=== PATIENT | female | born 1995 | race American Indian/Alaskan Native ===

== ENCOUNTER 2020-08-29 19:38 | Emergency (ER) | payer SELFPAY ==
[2020-08-29 19:55] VITALS: BP 118/82
--- NOTE | 2020-08-29 21:40 | Event Note ---
ED Screening Note Date of service: 08/29/20 Time: 21:37 ED Screening Note: 25-year-old -[place] female presents to the emergency room for intermittent abdominal pressure that radiates to her chest and back has been going on for several months. Patient states on Sunday the the symptoms have worsened. She denies any nausea vomiting diarrhea dysuria vaginal bleeding vaginal discharge. She does admit to some vaginal spotting. Last menstrual period was 07/23/2020. This initial assessment/diagnostic orders/clinical plan/treatment(s) is/are subject to change based on patients health status, clinical progression and re- assessment by fellow clinical providers in the ED. Further treatment and workup at subsequent clinical providers discretion. Patient/guardian urged not to elope from the ED as their condition may be serious if not clinically assessed and managed. Initial orders include:
[2020-08-29 22:26] LABS: Bilirubin,Urine NEG (Negative); Blood,Urine NEG (Negative); Color,Urine Yellow (Yellow); Protein,Urine <15 mg/dL mg/dL (Negative)
[2020-08-29 22:36] LABS: Hemoglobin 13.3 gm/dl (10.1-14.3); Mean Corpuscular HGB Conc 33 % (30-34); Mean Corpuscular Volume 91 fl (79-97); Platelet Count 245 K/mm3 (140-440); Red Blood Count 4.52 M/mm3 (3.65-5.03); Red Cell Distribution Width 13.6 % (13.2-15.2)
[2020-08-29 22:49] LABS: Basophils # (Auto) 0.1 K/mm3 (0.0-0.1); Eosinophils # (Auto) 0.1 K/mm3 (0.0-0.4); Eosinophils % (Auto) 0.3 % (0.0-4.3); Monocytes % (Auto) 4.2 % (0.0-7.3)
[2020-08-29 22:57] LABS: Alanine Aminotransferase 11 units/L (7-56); Albumin 4.5 g/dL (3.9-5); BUN/Creatinine Ratio 14; Blood Urea Nitrogen 11 mg/dL (7-17); Calcium 8.9 mg/dL (8.4-10.2); Hemolysis Index 4
[2020-08-30 04:31] LABS: Anisocytosis 1+; Total Cells Counted 200
[2020-08-30 04:32] LABS: Platelet Estimate Consistent w Auto
== END 2020-08-29 22:00 | disposition left against medical advice (07) ==
LOC: ED 19:38
DX: R07.9 Chest pain, unspecified (principal); Z53.21 Procedure and treatment not carried out due to patient leaving prior to being seen by health care provider
CPT/HCPCS: 36415; 80053; 81001; 84702; 85007; 85025; 87086

== ENCOUNTER 2021-11-23 22:42 | Emergency (ER) | payer SELFPAY ==
[2021-11-23] MEDS ORDERED: SODIUM CHLORIDE 0.9% 1000 ML 1,000 ML IV ONE (23:12)
[2021-11-23 23:56] VITALS: BP 100/73
[2021-11-24 00:13] LABS: Blood Urea Nitrogen 8 mg/dL (7-17)
[2021-11-24 00:14] LABS: Alanine Aminotransferase 9 units/L (7-56); Albumin 4.5 g/dL (3.9-5); BUN/Creatinine Ratio 10; Calcium 8.4 mg/dL (8.4-10.2); Hemolysis Index 3
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
[2021-11-24 00:20] LABS: Bilirubin,Urine NEG (Negative); Blood,Urine NEG (Negative); Color,Urine Yellow (Yellow); Mucus,Urine 1+ /HPF
[2021-11-24 00:25] LABS: Amphetamine Screen,Urine PRESUMPTIVE NEGATIVE; Benzodiazepines Screen,Urine PRESUMPTIVE NEGATIVE; Cannabinoid Screen,Urine PRESUMPTIVE POSITIVE; Cocaine Screen,Urine PRESUMPTIVE POSITIVE; Methadone Screen,Urine PRESUMPTIVE NEGATIVE; Opiate Screen,Urine PRESUMPTIVE NEGATIVE
[2021-11-24 00:37] LABS: Basophils % (Auto) 0.4 % (0.0-1.8); Eosinophils # (Auto) 0.1 K/mm3 (0.0-0.4); Eosinophils % (Auto) 1.8 % (0.0-4.3); Hematocrit 38.8 % (30.3-42.9); Hemoglobin 12.4 gm/dl (10.1-14.3); Lymphocytes % (Auto) 14.2 % (13.4-35.0); Mean Corpuscular HGB Conc 32 % (30-34); Mean Corpuscular Volume 91 fl (79-97); Monocytes # (Auto) 0.5 K/mm3 (0.0-0.8); Monocytes % (Auto) 6.7 % (0.0-7.3); Platelet Count 225 K/mm3 (140-440); Red Blood Count 4.25 M/mm3 (3.65-5.03); Red Cell Distribution Width 12.6 % (13.2-15.2)
== END 2021-11-24 01:53 | disposition left against medical advice (07) ==
LOC: ED 22:42
DX: T40.1X1A Poisoning by heroin, accidental (unintentional), initial encounter (principal); F17.200 Nicotine dependence, unspecified, uncomplicated; F14.90 Cocaine use, unspecified, uncomplicated; Z88.5 Allergy status to narcotic agent; Z79.899 Other long term (current) drug therapy; Y92.89 Other specified places as the place of occurrence of the external cause
CPT/HCPCS: 36415; 80053; 80307; 81001; 82140; 82550; 84484; 85025; 96360; 99284; J7030; 80320; G0480